=== PATIENT | female | born 1970 | race Caucasian/White ===

== ENCOUNTER 2020-09-23 07:25 | Day surgery (SDC) | payer OTHER, SELFPAY ==
[~2020-09-23] VITALS: Ht 157.5 cm; Wt 74.8 kg
[2020-09-23] MEDS ORDERED: fentaNYL citrate 0.05 MG/ML VIAL ONE (09:07)
[2020-09-23] MEDS ORDERED: LIDOCAINE 2% 100 MG/5 ML UJET TP ONE (09:07)
[2020-09-23] MEDS ORDERED: fentaNYL citrate 0.05 MG/ML VIAL IVP ONE (11:15)
== END 2020-09-23 14:00 | disposition home or self-care (01) ==
LOC: MDS 07:25 → MMU 07:26 → MDS 14:00
PROVIDERS: ATTEND Internal Medicine Gastroenterology
DX: Z12.11 Encounter for screening for malignant neoplasm of colon (principal); K63.5 Polyp of colon; Z79.899 Other long term (current) drug therapy; Z20.822 Contact with and (suspected) exposure to COVID-19
CPT/HCPCS: 45385; J3010; U0003